=== PATIENT | female | born 1965 | race Caucasian/White ===

== ENCOUNTER 2016-10-05 09:44 | Emergency (ER) | payer OTHER ==
[~2016-10-05] VITALS: Ht 162.6 cm; Wt 83.8 kg
[~2016-10-05 09:44] MED LIST: BENT20TA PO; CARA1TAB6 PO; COZA100T PO; HYDR-3535 PO; LORA1TAB12 PO; METR-1 PO; OMEP20TA PO; ZANA4CAP PO; ZOFR4TAB3 SL
[2016-10-05 09:48] VITALS: BP 136/83; PULSE 96; RESP 16; TEMP 97.7; O2SAT 98
[2016-10-05] MEDS ORDERED: diphenhydrAMINE HCL 50 MG/ML VIAL IV PUSH ONE (10:15)
[2016-10-05] MEDS ORDERED: PROCHLORPERAZINE INJ 10 MG/2 ML VIAL IV PUSH ONE (10:15)
[2016-10-05] MEDS ORDERED: SODIUM CHLORIDE 0.9% FLUSH 10 ML FLUSH IVF PRN (10:15)
[2016-10-05 10:17] VITALS: O2SAT 96
[2016-10-05 10:27] LABS: BASOPHIL % 0.3 % (0.0-2.0); EOSINOPHIL # 0.1 TH/MM3 (0-0.4); EOSINOPHIL % 0.9 % (0.0-4.0); HEMATOCRIT 43.3 % (35.0-46.0); HEMO FLAGS DIFF FINAL; LYMPH % 22.4 % (9.0-44.0); LYMPHOCYTE # 1.9 TH/MM3 (1.0-4.8); MEAN CELL VOLUME 83.8 FL (80.0-100.0); MEAN CORPUSCULAR HEMOGLOBIN 26.7 PG (27.0-34.0); MEAN CORPUSCULAR HGB CONC 31.9 % (32.0-36.0); MONO % 4.6 % (0.0-8.0); NEUT % 71.8 % (16.0-70.0); PLATELET COUNT 263 TH/MM3 (150-450); RED BLOOD COUNT 5.16 MIL/MM3 (4.00-5.30); RED CELL DISTRIBUTION WIDTH 12.6 % (11.6-17.2); WHITE BLOOD COUNT 8.4 TH/MM3 (4.0-11.0)
[2016-10-05 10:34] LABS: CHLORIDE 108 MEQ/L (98-107); POTASSIUM 3.7 MEQ/L (3.5-5.1); SODIUM (NA) 145 MEQ/L (136-145)
[2016-10-05 10:38] LABS: ANION GAP 8 MEQ/L (5-15); BICARBONATE 28.6 MEQ/L (21.0-32.0); BLOOD UREA NITROGEN 11 MG/DL (7-18); MAGNESIUM 2.2 MG/DL (1.5-2.5)
[2016-10-05 10:41] LABS: ALT (GPT) 26 U/L (10-53); AST (GOT) 12 U/L (15-37); GLOMERULAR FILTRATION RATE 74 ML/MIN (>89)
[2016-10-05 10:43] LABS: TOTAL BILIRUBIN ADULT 0.2 MG/DL (0.2-1.0)
[2016-10-05 10:44] LABS: ALKALINE PHOSPHATASE 110 U/L (45-117)
[2016-10-05 11:05] LABS: CREATINE KINASE 60 U/L (26-192)
--- NOTE | 2016-10-05 11:12 | PD ---
HPI . Blurred vision Chief Complaint: Dizziness Time Seen by Provider: 10:06 Travel History International Travel<30 days: No Contact w/Intl Traveler<30days: No Traveled to known affect area: No History of Present Illness HPI Patient presents with blurred vision, dizziness feeling off balance since 6:30 last night. Symptoms have persisted. It is associated with nausea but no vomiting. She states that she actually has some numbness of her tongue along as night prior to the onset of the visual problems and dizziness. She denies any peripheral symptoms. She does not have a headache. The blurred vision is severe. PFSH Past Medical History Arthritis: Yes (OA) Asthma: No Anxiety: Yes Heart Rhythm Problems: No Cancer: No Cardiovascular Problems: Yes (htn on meds) High Cholesterol: No Chest Pain: No Congestive Heart Failure: No COPD: No Cerebrovascular Accident: No Diabetes: No Diminished Hearing: No Endocrine: No Fibromyalgia: Yes Gastrointestinal Disorders: Yes GERD: Yes Genitourinary: No Headaches: No Hepatitis: No Hiatal Hernia: Yes Hypertension: Yes Immune Disorder: Yes (fibromyalgia) Kidney Stones: No Musculoskeletal: Yes (neck pain and arthritis) Neurologic: Yes (NUMBNESS, RIGHT FOOT AND LEFT HAND, CHRONIC PAIN) Psychiatric: Yes (anxiety) Reproductive: Yes (HX ENDOMETRIOSIS) Respiratory: No Migraines: No Renal Failure: No Seizures: No Sleep Apnea: No Thyroid Disease: No Ulcer: No Tetanus Vaccination: Unknown ?: Not : 5 Para: 4 Miscarriage: 1 Tubal Ligation: Yes Past Surgical History Abdominal Surgery: Yes (gallbladder) AICD: No Body Medical Devices: breast marker r Cardiac Surgery: No Section: Yes (X 4) Cholecystectomy: Yes Ear Surgery: No Endocrine Surgery: No Eye Surgery: No Genitourinary Surgery: No Gynecologic Surgery: Yes ( X 4; D&C W/LAP X 2, HYSTERECTOMY) Hysterectomy: Yes Joint Replacement: No Neurologic Surgery: No Oral Surgery: No Pacemaker: No Thoracic Surgery: No Other Surgery: Yes (DECEMBER 2015 LUMBAR FUSION L5-S1) Social History Alcohol Use: No Tobacco Use: No (QUIT 2010) Substance Use: No Allergies-Medications (Allergen,Severity, Reaction): Coded Allergies: Oxycontin (Verified Allergy, Severe, SOB/CAN'T BREATH, 10/05/16) Morphine (Verified Adverse Reaction, Severe, N/V/ITCHING/FEELS DEATHLY ILL , 10/05/16) Penicillin (Verified Adverse Reaction, Severe, N/V/ITCHING, 10/05/16) Aspirin (Verified Adverse Reaction, Intermediate, N/V/RASH, 10/05/16) Sulfa (Verified Adverse Reaction, Intermediate, N/V, 10/05/16) Reported Meds & Prescriptions Reported Meds & Active Scripts Active Bentyl (Dicyclomine HCl) 20 Mg Tab 20 Mg PO TID Zofran Odt (Ondansetron Odt) 4 Mg Tab 4 Mg SL Q6HR PRN Reported Zanaflex (Tizanidine HCl) 4 Mg Cap 4 Mg PO TID PRN Lortab (Hydrocodone-Acetaminophen) 10-325 Mg Tab 1 Tab PO Q6H PRN Lorazepam 1 Mg Tab 1 Mg PO BID PRN Omeprazole 20 Mg Tab 20 Mg PO DAILY Cozaar (Losartan Potassium) 100 Mg Tab 100 Mg PO DAILY Review of Systems Except as stated in HPI: all other systems reviewed are Neg General / Constitutional: No: Fever, Chills Eyes: Positive: Diploplia, Blurred Vision HENT: No: Headaches Cardiovascular: No: Chest Pain or Discomfort Respiratory: No: Shortness of Breath Gastrointestinal: Positive: Nausea, No: Vomiting, Diarrhea Neurologic: Positive: Dizziness, Ataxia, No: Weakness, Headache, Change in Mentation, Slurred Speech, Paresthesia Physical Exam Narrative GENERAL: Patient is lying on the bed her eyes closed in no acute distress. SKIN: Warm and dry. HEAD: Atraumatic. Normocephalic. EYES: Pupils equal and round. Her extraocular movements are not normal. It appears that both eyes will not deviate medially past the midline. The patient feels like the majority of her symptoms are in the right eye but I am unable to get the left eye to go past midline. ENT: No nasal bleeding or discharge. Mucous membranes pink and moist. NECK: Trachea midline. CARDIOVASCULAR: Regular rate and rhythm. RESPIRATORY: No accessory muscle use. GASTROINTESTINAL: Abdomen soft, non-tender, nondistended. MUSCULOSKELETAL: No obvious deformities. No edema. NEUROLOGICAL: Awake and alert. No obvious cranial nerve deficits with the exception of the extraocular movement. Motor grossly within normal limits. Normal speech. Tongue protrudes in the midline. PSYCHIATRIC: Appropriate mood and affect; insight and judgment normal. Data Data Last Documented VS Vital Signs Date Time Temp Pulse Resp B/P Pulse Ox O2 Delivery O2 Flow Rate FiO2 10/05/16 10:17 96 10/05/16 10:03 95 16 10/05/16 09:48 97.7 136/83 Orders Electrocardiogram (10/05/16 10:06) Complete Blood Count With Diff (10/05/16 10:06) Comprehensive Metabolic Panel (10/05/16 10:06) Magnesium (Mg) (10/05/16 10:06) Ckmb (Isoenzyme) Profile (10/05/16 10:06) Troponin I (10/05/16 10:06) Chest, Single Ap (10/05/16 10:06) Ct Brain W/O Iv Contrast(Rout) (10/05/16 10:06) Ecg Monitoring (10/05/16 10:06) Iv Access Insert/Monitor (10/05/16 10:06) Oximetry (10/05/16 10:06) Sodium Chloride 0.9% Flush (Ns Flush) (10/05/16 10:15) Prochlorperazine Inj (Compazine Inj) (10/05/16 10:15) Diphenhydramine Inj (Benadryl Inj) (10/05/16 10:15) Labs Laboratory Tests Test 10/05/16 10:19 White Blood Count 8.4 TH/MM3 Red Blood Count 5.16 MIL/MM3 Hemoglobin 13.8 GM/DL Hematocrit 43.3 % Mean Corpuscular Volume 83.8 FL Mean Corpuscular Hemoglobin 26.7 PG Mean Corpuscular Hemoglobin 31.9 % Concent Red Cell Distribution Width 12.6 % Platelet Count 263 TH/MM3 Mean Platelet Volume 8.7 FL Neutrophils (%) (Auto) 71.8 % Lymphocytes (%) (Auto) 22.4 % Monocytes (%) (Auto) 4.6 % Eosinophils (%) (Auto) 0.9 % Basophils (%) (Auto) 0.3 % Neutrophils # (Auto) 6.0 TH/MM3 Lymphocytes # (Auto) 1.9 TH/MM3 Monocytes # (Auto) 0.4 TH/MM3 Eosinophils # (Auto) 0.1 TH/MM3 Basophils # (Auto) 0.0 TH/MM3 CBC Comment DIFF FINAL Differential Comment Sodium Level 145 MEQ/L Potassium Level 3.7 MEQ/L Chloride Level 108 MEQ/L Carbon Dioxide Level 28.6 MEQ/L Anion Gap 8 MEQ/L Blood Urea Nitrogen 11 MG/DL Creatinine 0.81 MG/DL Estimat Glomerular Filtration 74 ML/MIN Rate Random Glucose 154 MG/DL Calcium Level 8.7 MG/DL Magnesium Level 2.2 MG/DL Total Bilirubin 0.2 MG/DL Aspartate Amino Transf 12 U/L (AST/SGOT) Alanine Aminotransferase 26 U/L (ALT/SGPT) Alkaline Phosphatase 110 U/L Total Creatine Kinase 60 U/L Troponin I LESS THAN 0.02 NG/ML Total Protein 7.4 GM/DL Albumin 3.7 GM/DL MDM Medical Decision Making Medical Screen Exam Complete: Yes Emergency Medical Condition: Yes Interpretation(s) EKG shows a normal sinus rhythm with no acute ischemic change. Differential Diagnosis Differential diagnosis includes peripheral nerve palsy, extraocular muscular entrapment, brain tumor, brain bleed Narrative Course Patient presents with acute diplopia. She seems to have bilateral eye involvement. CBC & BMP Diagram 10/05/16 10:19 Cardiac enzymes are negative. Liver function studies are normal. Last Impressions Head CT 10/05/16 1006 Signed Impressions: Service Date/Time: Wednesday, October 05, 2016 10:39 - CONCLUSION: No acute intracranial abnormality is identified. Renan Asif MD Chest X-Ray 10/05/16 1006 Signed Impressions: Service Date/Time: Wednesday, October 05, 2016 11:07 - CONCLUSION: No acute disease. Kade Fletcher MD Physician Communication Physician Communication Case discussed with Dr. Dalton. He feels that this is probably really just affecting one eye. The patient believes that it is her right eye. He will see her in the office at 12:30. The patient's eye will be patched for comfort in the meantime. Diagnosis Primary Impression: Diplopia Referrals: Antwan Roa MD Disposition: 01 DISCHARGE HOME Condition: Stable Lisandra Ortiz MD Oct 05, 2016 11:12
--- NOTE | 2016-10-05 11:15 | RADHPO ---
EXAM DATE/TIME: 10/05/2016 10:39 [facility] COMPARISON: No previous studies available for comparison. INDICATIONS : Dizziness, blurred vision, neck pain. RADIATION DOSE: 63.64 CTDIvol (mGy) MEDICAL HISTORY : Hypertension. SURGICAL HISTORY : Hysterectomy. ENCOUNTER: Initial ACUITY: 1 day PAIN SCALE: 0/10 LOCATION: cranial TECHNIQUE: Multiple contiguous axial images were obtained of the head. Using automated exposure control and adj ustment of the mA and/or kV according to patient size, radiation dose was kept as low as reasonably a chievable to obtain optimal diagnostic quality images. FINDINGS: CEREBRUM: Ventricles demonstrate asymmetry but are overall normal in size. No evidence of midline shift, mass lesion, hemorrhage or acute infarction. No extra-axial fluid collections are seen. POSTERIOR FOSSA: The cerebellum and brainstem demonstrate no acute finding. The 4th ventricle is midline. The cerebe llopontine angle is unremarkable. EXTRACRANIAL: Visualized sinuses are clear. SKULL: The calvaria is intact. No evidence of skull fracture. CONCLUSION: No acute intracranial abnormality is identified. Renan Asif MD on October 05, 2016 at 11:12 Board Certified Radiologist. This report was verified electronically.
--- NOTE | 2016-10-05 11:23 | RADHPO ---
EXAM DATE/TIME: 10/05/2016 11:07 [facility] COMPARISON: CHEST PA & LAT, January 09, 2016, 12:04. INDICATIONS : Syncopal episode with shortness of breath MEDICAL HISTORY : Hypertension. SURGICAL HISTORY : None. ENCOUNTER: Initial ACUITY: 1 day PAIN SCORE: 0/10 LOCATION: Bilateral chest FINDINGS: A single view of the chest demonstrates the lungs to be symmetrically aerated without evidence of mas s, infiltrate or effusion. The cardiomediastinal contours are unremarkable. Osseous structures are intact. CONCLUSION: No acute disease. Kade Fletcher MD on October 05, 2016 at 11:21 Board Certified Radiologist. This report was verified electronically.
[2016-10-05 11:35] VITALS: BP 146/73
--- NOTE | 2016-10-06 11:54 | EKG ---
Date Performed: 10/05/2016 Time Performed: 10:17:52 PTAGE: 51 years EKG: Sinus rhythm Normal ECG PREVIOUS TRACING : 01/09/2016 11.22 DOCTOR: Martinez Culver Interpretating Date/Time 10/06/2016 11:47:10
== END 2016-10-05 11:49 | disposition home or self-care (01) ==
LOC: PHED 09:44
DX: H53.8 Other visual disturbances (principal); I10 Essential (primary) hypertension; M79.7 Fibromyalgia; H53.2 Diplopia
CPT/HCPCS: 70450; 71010; 80053; 82550; 83735; 84484; 85025; 93005; 96374; 96375; 99285; J0780; J1200

== ENCOUNTER 2016-10-05 13:24 | Inpatient (IN) | payer OTHER ==
[~2016-10-05] VITALS: Ht 160 cm; Wt 77.0 kg
[2016-10-05 13:25] VITALS: BP 155/79; PULSE 94; RESP 16; TEMP 98; O2SAT 97
[2016-10-05 15:25] VITALS: BP 156/78; PULSE 90; RESP 16; TEMP 98.1; O2SAT 98
--- NOTE | 2016-10-05 15:32 | PD ---
HPI Chief Complaint: Neuro Symptoms/ Deficits Time Seen by Provider: 15:32 Travel History International Travel<30 days: No Contact w/Intl Traveler<30days: No Traveled to known affect area: No History of Present Illness HPI 51-year-old female with PMH of HTN, chronic neck and back pain, (s/p TLI F of L5 /S1 by Dr. Hudson) presents to the ED for evaluation of sudden onset double/ triple vision, dizziness, nausea, unsteadiness. Patient states that she was watching TV last night had an episode of numbness in the mouth and lips which lasted about 10 seconds and resolved before the patient began to feel tension of the neck. She states that the facial paresthesias have resolved, neck tension continues on presentation. Just after this episode she began to experience vision problems. She was seen at [facility], medically cleared and sent to the jewelry estimator. Dr. Roa did a complete exam and sent her back to the ED for MRI with contrast. PCP Dr Anatoliy Baires. [facility] Past Medical History Arthritis: Yes (OA) Asthma: No Anxiety: Yes Heart Rhythm Problems: No Cancer: No Cardiovascular Problems: Yes (htn on meds) High Cholesterol: No Chest Pain: No Congestive Heart Failure: No COPD: No Cerebrovascular Accident: No Diabetes: No Diminished Hearing: No Endocrine: No Fibromyalgia: Yes Gastrointestinal Disorders: Yes GERD: Yes Genitourinary: No Headaches: No Hepatitis: No Hiatal Hernia: Yes Hypertension: Yes Immune Disorder: Yes (fibromyalgia) Kidney Stones: No Musculoskeletal: Yes (neck pain and arthritis) Neurologic: Yes (NUMBNESS, RIGHT FOOT AND LEFT HAND, CHRONIC PAIN) Psychiatric: Yes (anxiety) Reproductive: Yes (HX ENDOMETRIOSIS) Respiratory: No Migraines: No Renal Failure: No Seizures: No Sleep Apnea: No Thyroid Disease: No Ulcer: No : 5 Para: 4 Miscarriage: 1 Tubal Ligation: Yes Past Surgical History Abdominal Surgery: Yes (gallbladder) AICD: No Body Medical Devices: breast marker r Cardiac Surgery: No Section: Yes (X 4) Cholecystectomy: Yes Ear Surgery: No Endocrine Surgery: No Eye Surgery: No Genitourinary Surgery: No Gynecologic Surgery: Yes ( X 4; D&C W/LAP X 2, HYSTERECTOMY) Hysterectomy: Yes Joint Replacement: No Neurologic Surgery: No Oral Surgery: No Pacemaker: No Thoracic Surgery: No Other Surgery: Yes (DECEMBER 2015 LUMBAR FUSION L5-S1) Social History Alcohol Use: No Tobacco Use: No (QUIT 2010) Substance Use: No Allergies-Medications (Allergen,Severity, Reaction): Coded Allergies: Oxycontin (Verified Allergy, Severe, SOB/CAN'T BREATH, 10/05/16) Morphine (Verified Adverse Reaction, Severe, N/V/ITCHING/FEELS DEATHLY ILL , 10/05/16) Penicillin (Verified Adverse Reaction, Severe, N/V/ITCHING, 10/05/16) Aspirin (Verified Adverse Reaction, Intermediate, N/V/RASH, 10/05/16) Sulfa (Verified Adverse Reaction, Intermediate, N/V, 10/05/16) Reported Meds & Prescriptions Reported Meds & Active Scripts Active Reported Zanaflex (Tizanidine HCl) 4 Mg Cap 4 Mg PO TID PRN Lortab (Hydrocodone-Acetaminophen) 10-325 Mg Tab 1 Tab PO Q6H PRN Lorazepam 1 Mg Tab 1 Mg PO BID PRN Omeprazole 20 Mg Tab 20 Mg PO DAILY Cozaar (Losartan Potassium) 100 Mg Tab 100 Mg PO DAILY Review of Systems Except as stated in HPI: all other systems reviewed are Neg Physical Exam Narrative GENERAL: Well-nourished, well-developed nontoxic appearing white female in no acute distress. SKIN: Focused skin assessment warm/dry. HEAD: Normocephalic. EYES: No scleral icterus. No injection or drainage. PERRLA. Unable to adduct the eyes bilaterally. NECK: Supple, trachea midline. No JVD or lymphadenopathy. CARDIOVASCULAR: Regular rate and rhythm without murmurs, gallops, or rubs. RESPIRATORY: Breath sounds equal bilaterally. No accessory muscle use. GASTROINTESTINAL: Abdomen soft, non-tender, nondistended. MUSCULOSKELETAL: No cyanosis, or edema. NEUROLOGICAL: Awake and alert. Cranial nerves II through XII intact. Motor and sensory grossly within normal limits. Five out of 5 muscle strength in all muscle groups. Normal speech. BACK: Nontender without obvious deformity. No CVA tenderness. Data Data Last Documented VS Vital Signs Date Time Temp Pulse Resp B/P Pulse Ox O2 Delivery O2 Flow Rate FiO2 10/05/16 18:19 101 16 131/80 96 Room Air 10/05/16 15:25 98.1 Orders Mri Brain W&W/O Contrast (10/05/16 15:36) Ondansetron Inj (Zofran Inj) (10/05/16 16:45) ^ Insert Iv (10/05/16 16:37) Lorazepam Inj (Ativan Inj) (10/05/16 16:45) Gadodiamide Pf Inj (Omniscan Pf Inj) (10/05/16 18:19) Diet Npo (10/05/16 Dinner) Vital Signs (Adult) BG.Q4H (10/05/16 18:25) Neuro Checks . ORDERED (10/05/16 18:25) Sodium Chlor 0.9% 1000 Ml Inj (Ns 1000 M (10/05/16 18:30) Ondansetron Inj (Zofran Inj) (10/05/16 18:30) Consult Neurology (10/05/16 ) Admit Order (Ed Use Only) (10/05/16 18:25) MDM Medical Decision Making Medical Screen Exam Complete: Yes Emergency Medical Condition: Yes Differential Diagnosis Cranial nerve palsy versus Guillain-Cesar versus MS versus orbital myositis versus brain mass versus internuclear ophthalmoplegia versus other Narrative Course 51-year-old female with PMH of HTN, fibromyalgia, chronic neck and back pain, (s /p TLI F of L5/S1 by Dr. Hudson) presents to the ED for evaluation of sudden onset double/triple vision, dizziness, nausea, unsteadiness. She endorses an episode of facial paraesthesia last night that is resolved on presentation. Just after this episode she began to experience vision problems. She was seen at [facility] this AM, medically cleared and sent to the jewelry estimator. Dr. Roa did a complete exam and sent her back to the ED for MRI with contrast. Vitals reviewed. Physical exam reveals a nontoxic-appearing white female in no acute distress. Unable to adduct the eyes bilaterally. She was administered Iv Zofran and Ativan. Eye exam per Dr. Roa paperwork: Right eye 20/20, pressure 13, pupils 2 mm and sluggish, no adduction, ROM otherwise intact, cup-to-disc ratio, fundus and vessels normal. Left eye: 20/25, pressure 14, pupil 2.5 mm and sluggish, no adduction, ROM otherwise intact, cup-to-disc ratio, fundus and vessels normal. Dr. Roa DDX: internuclear ophthalmoplegia. Lab work from this morning: CBC: WBC 8.4, hemoglobin 13.8. CMP unremarkable. Cardiac enzymes: negative, CXR: negative for acute disease, HEAD CT: no acute intracranial abnormality per radiology. MRI: pending Plan to consult neuro and admit to medicine. I spoke with Dr. Vaughn who agrees to accept this patient to the medicine service. Please see medicine and neuro notes for disposition. Diagnosis Primary Impression: Diplopia Tiera Churchill Oct 05, 2016 15:32
[2016-10-05] MEDS ORDERED: ONDANSETRON HCL 4 MG/2 ML VIAL IV PUSH ONE (16:45)
[2016-10-05] MEDS ORDERED: LORazepam 2 MG/ML VIAL IV PUSH ONE (16:45)
[2016-10-05 18:19] VITALS: BP 131/80; PULSE 101; RESP 16; O2SAT 96
[2016-10-05] MEDS ORDERED: GADODIAMIDE PF 287 MG/ML 5 ML VIAL (for RAD MRI) IV ONE (18:19)
[2016-10-05] MEDS ORDERED: ONDANSETRON HCL 4 MG/2 ML VIAL IV PUSH PRN (18:30)
[2016-10-05] MEDS: SODIUM CHLOR 0.9% 1000 ML INJ 1,000 ML IV SCH (18:39)
--- NOTE | 2016-10-05 18:52 | RADRPT ---
EXAM DATE/TIME: 10/05/2016 17:43 [facility] COMPARISON: No previous studies available for comparison. INDICATIONS : Dizziness. Double vision. CONTRAST: 15 cc Omniscan (gadodiamide) IV MEDICAL HISTORY : Hypertension. SURGICAL HISTORY : Hysterectomy. Lumbar fusion. ENCOUNTER: Initial ACUITY: 1 day PAIN SCORE: 2/10 LOCATION: Head. TECHNIQUE: Multiplanar, multisequence MRI of the brain was performed both prior to and following the administration of paramagnetic contrast. FINDINGS: There is no restricted diffusion evident. Posterior fossa is unremarkable. Supratentorial brain shows very minimal periventricular white matter changes. Orbits are unremarkable. There are no extra-axial fluid collections appreciated. I do not see any stigmata of a demyelinated process. Following intravenous administration of gadolinium there is no abnormal contrast enhancement apprecia bart. CONCLUSION: 1. Negative MRI of the brain. I do not see an etiology for the patient's dizziness and double vision . 2. There is mild asymmetry of the ventricles with the right larger than the left thought to be on a c ongenital basis. Lenin Saldivar MD FACR on October 05, 2016 at 18:43 Board Certified Radiologist. This report was verified electronically.
[2016-10-05 19:47] VITALS: BP 173/87; PULSE 108; RESP 16; O2SAT 97
--- NOTE | 2016-10-05 19:58 | HHI.HP ---
HPI Service [facility] Hospitalists Primary Care Physician Niurka Townsend Admission Diagnosis diplopia, n/v Diagnoses: Chief Complaint: diplopia and nausea Travel History International Travel<30 Days: No Contact w/Intl Traveler <30 Da: No Traveled to Known Affected Are: No History of Present Illness 51-year-old female with PMH of HTN, chronic neck and back pain GERD and fatty liver. Patient states that she was watching TV last night (10/04/16) around 1800 had an episode of numbness in the mouth and lips which lasted approximately 10 seconds and resolved spontaneously. She states that the facial paresthesias have resolved. Just after this episode she began to experience double vision and dizziness. Diplopia was still present this AM therefore patient proceeded to [facility] for evaluation, initially patient presented to the ED for evaluation of diplopia, dizziness, nausea. Patient was seen at [facility], medically cleared and sent to the roller embosser. Dr. Roa did a complete exam and sent her back to the ED for MRI with contrast. Patient does check her blood pressure at home routinely and reports that her SBP is usually around 130's. Patient is now currently having vomiting, feels this may be due to not eating all day. Patient denies recent illness sore throat, cough, fever, chills, diarrhea, SOB, chest pain, black stool, bright red blood per rectum. Patient also denies palpitations or recent travel, denies lower extremity pain, edema or erythema. Review of Systems Except as stated in HPI: all other systems reviewed are Neg Past Family Social History Past Medical History HTN, chronic neck and back pain GERD and fatty liver Past Surgical History laminectomy x2 x4 Cholecystectomy hysterectomy Reported Medications Zanaflex (Tizanidine HCl) 4 Mg Cap 4 Mg PO TID PRN Lortab (Hydrocodone-Acetaminophen) 10-325 Mg Tab 1 Tab PO Q6H PRN Lorazepam 1 Mg Tab 1 Mg PO BID PRN Omeprazole 20 Mg Tab 20 Mg PO DAILY Cozaar (Losartan Potassium) 100 Mg Tab 100 Mg PO DAILY Allergies: Coded Allergies: Oxycontin (Verified Allergy, Severe, SOB/CAN'T BREATH, 10/05/16) Morphine (Verified Adverse Reaction, Severe, N/V/ITCHING/FEELS DEATHLY ILL , 10/05/16) Penicillin (Verified Adverse Reaction, Severe, N/V/ITCHING, 10/05/16) Aspirin (Verified Adverse Reaction, Intermediate, N/V/RASH, 10/05/16) Sulfa (Verified Adverse Reaction, Intermediate, N/V, 10/05/16) Active Ordered Medications Current Medications Medications (Trade) Dose Ordered Sig/Abiola Route Start Time Stop Time Status Last Admin (NS 1000 ml Inj) 1,000 ml @ 100 mls/hr Q10H IV 10/05/16 18:30 10/05/16 18:39 (Zofran Inj) 4 mg Q8HR PRN IV PUSH 10/05/16 18:30 Family History Mother breast Ca, DM and Htn Father DM and CAD Social History quit smoking 2010 denies illicit drug use denies ETOH use Physical Exam Vital Signs Vital Signs Date Time Temp Pulse Resp B/P Pulse Ox O2 Delivery O2 Flow Rate FiO2 10/05/16 18:19 101 16 131/80 96 Room Air 10/05/16 15:35 Room Air 10/05/16 15:25 98.1 90 16 156/78 98 Room Air 10/05/16 13:25 98.0 94 16 155/79 97 Physical Exam GENERAL: This is a well-nourished, well-developed patient, currently vomiting SKIN: No rashes, ecchymoses or lesions. Cool and dry. HEAD: Atraumatic. Normocephalic. No temporal or scalp tenderness. EYES: unable to adduct bilaterally. No scleral icterus. No injection or drainage. ENT: Nose without bleeding, purulent drainage or septal hematoma. Throat without erythema, tonsillar hypertrophy or exudate. Uvula midline. Airway patent. NECK: Trachea midline. No JVD or lymphadenopathy. Supple, nontender, no meningeal signs. CARDIOVASCULAR: Tachycardia without murmurs, gallops, or rubs. RESPIRATORY: Clear to auscultation. Breath sounds equal bilaterally. No wheezes , rales, or rhonchi. GASTROINTESTINAL: Abdomen soft, non-tender, nondistended. No guarding. MUSCULOSKELETAL: Extremities without clubbing, cyanosis, or edema. No joint tenderness, effusion, or edema noted. No calf tenderness. Negative Homans sign bilaterally. NEUROLOGICAL: Awake and alert. Motor and sensory grossly within normal limits. Five out of 5 muscle strength in all muscle groups. Normal speech. Imaging Last Impressions Brain MRI 10/05/16 1536 Signed Impressions: Service Date/Time: Wednesday, October 05, 2016 17:43 - CONCLUSION: 1. Negative MRI of the brain. I do not see an etiology for the patient's dizziness and double vision. 2. There is mild asymmetry of the ventricles with the right larger than the left thought to be on a congenital basis. Lenin Saldivar MD FACR Carotid Artery Ultrasound 10/05/16 0000 Signed Impressions: Service Date/Time: Wednesday, October 05, 2016 20:50 - CONCLUSION: Negative examination for a hemodynamically significant carotid stenosis. Lenin Saldivar MD Assessment and Plan Problem List: (1) Diplopia ICD Code: H53.2 Status: Acute (2) KRISHNA (internuclear ophthalmoplegia) ICD Code: H51.20 Status: Acute Assessment and Plan 51-year-old female with PMH of HTN, chronic neck and back pain GERD and fatty liver. Patient states that she was watching TV last night (10/04/16) around 1800 had an episode of numbness in the mouth and lips which lasted about 10 seconds and resolved before the patient began to feel tension of the neck. She states that the facial paresthesias have resolved, neck tension continues on presentation. Just after this episode she began to experience vision problems. Initially patient presented to the ED for evaluation of diplopia, dizziness, nausea possible internuclear ophthalmoplegia TIA vs CVA vs MS- leaning toward MS as the adduction was bilateral dizziness Initially CT head done [facility] reviewed and reveals: no acute intracranial abnormality is identified consult neurology MRI with and without contrast reveals report- negative MRI no etiology for dizziness and diplopia, mild asymmetry of ventricles possibly congenital basis US bilateral carotid arteries echocardiogram continuous telemetry allow permissive HTN- hold Cozaar N/V Zofran Q6H as needed Reglan 5 mg IV as needed start full liquid diet HTN will hold home medication at this time allow permissive HTN at this time GERD continue home Omeprazole DVT prophylaxis SCDs Discussed with ER provider, nursing and patient Written by Lilia Islas, acting as scribe for Dr. Green on 10/05/16 at 20: 21. All or portions of this note were transcribed by scribe [Lilia Islas]. I, Dr. Amanuel Green personally performed the history, physical exam, and medical decision making; and confirmed the accuracy of the information in the transcribed note. Authenticated by Dr. Amanuel Green on 10/05/16 at 20:21. Discussed Condition With patient, ER Lilia Willis Oct 05, 2016 19:58 Amanuel Green MD Oct 06, 2016 07:07
[2016-10-05] MEDS ORDERED: METOCLOPRAMIDE HCL 10 MG/2 ML VIAL IV PUSH PRN (20:15)
[2016-10-05] MEDS: LORazepam 1 MG TAB PO PRN (21:55)
[2016-10-05] MEDS: ONDANSETRON HCL 4 MG/2 ML VIAL IV PUSH PRN (21:55)
--- NOTE | 2016-10-05 22:48 | RADRPT ---
EXAM DATE/TIME: 10/05/2016 20:50 [facility] COMPARISON: No previous studies available for comparison. INDICATIONS : CVA. MEDICAL HISTORY : Gastroesophageal reflux disease. Hypertension. Arthritis. Fibromyalgia. SURGICAL HISTORY : section. Tubal ligation. Hysterectomy. Cholecystectomy. Hiatal hernia repair. D&C. Lower back surgery. ENCOUNTER: Initial ACUITY: 2 days PAIN SCORE: 3/10 LOCATION: Bilateral neck PEAK SYSTOLIC VELOCITIES (cm/sec): ICA/CCA RATIO: Right: 0.6 Left: 0.9 ICA: Right: 79 Left: 104 CCA: Right: 127 Left: 112 ECA: Right: 46 Left: 106 VERTEBRAL: Right: 39 antegrade Left: 62 antegrade Elevated flow velocities and ICA/CCA ratios have been found to correlate with increased degrees of vessel stenosis, calculated as percentage of diameter relative to a normal segment of distal ICA/CCA FINDINGS: RIGHT CAROTID: There is no evidence for a hemodynamically significant carotid stenosis. Minimal int imal hyperplasia is present with scattered calcific plaque. LEFT CAROTID: There is no evidence for a hemodynamically significant carotid stenosis. Minimal inti mal hyperplasia is present with scattered calcific plaque. VERTEBRAL ARTERIES: Flow is antegrade in both vertebral arteries. MISCELLANEOUS: There are no ancillary masses or adenopathy. CONCLUSION: Negative examination for a hemodynamically significant carotid stenosis. Lenin Saldivar MD FACR Board Certified Radiologist. This report was verified electronically.
[2016-10-06] VITALS (9 sets, daily range): BP systolic 112–132; BP diastolic 57–69; PULSE 80–89; RESP 16–20; TEMP 97.5–98.7; O2SAT 95–96
[2016-10-06] MEDS: SODIUM CHLOR 0.9% 1000 ML INJ 1,000 ML IV SCH ×2 (05:00→15:14)
[2016-10-06] MEDS: PANTOPRAZOLE SOD 20 MG DELAYED RELEASE TAB PO SCH (06:19)
[2016-10-06] MEDS: ONDANSETRON HCL 4 MG/2 ML VIAL IV PUSH PRN ×2 (06:20→23:12)
[2016-10-06] MEDS: LORazepam 1 MG TAB PO PRN (09:40)
--- NOTE | 2016-10-06 12:36 | MB ---
cc: CYN FINLEY M.D. DATE OF CONSULTATION 10/06/2016 She is a 51-year-old woman seen in neurological consultation. HISTORY OF PRESENT ILLNESS On Wednesday, two days ago, she developed sudden numbness around the mouth and lips. She fell this bilaterally, lasting than 10 seconds only. During the numbness or immediately after that she observed double vision and some probable vertigo. She went to bed and in the morning her symptoms seemed to persist and she went to the emergency room. She was referred to the cancer registry manager and after seeing the cancer registry manager, she was sent back to the emergency room where she is seen now. She came into this emergency room last evening. No recurrence of numbness or tingling but the double vision persists. She has a history of lower back surgery last year, chronic low back and neck pain and she takes Lortab for these. She takes lorazepam in the evenings and losartan. She does not take any aspirin or blood thinners. No history of stroke. No diabetes. No cancer history. NEUROLOGIC EXAM Completely normal mentation. Pupils were equal and reactive. I could not see the disks well as the pupils were small and she on the other hand has obvious difficulty with the left eye crossing the midline when she gazes to the right. The left eye will cross but only partially and she is uncomfortable with this. She has double vision when she looks at my face and happens when I was on her right hand side. The there is no ptosis. There is no facial weakness. Speech and language are normal. Extremities were normal on the bedside exam. The reflexes were 1+ throughout, plantar responses were flexor. There is no arm drift, [id number] testing is normal. Good strength with the lower extremities exam. IMAGING STUDIES The MRI of brain appears normal though on my review there is some questionable minor changes in the brain stem in the FLAIR images, no distinct diffusion abnormalities noted. There is a single foci of microvascular disease or edema, ischemic demyelination supratentorial. Carotid ultrasound is unremarkable. LABORATORY DATA Apparently no labs from this admission. ASSESSMENT Diplopia with an intranuclear ophthalmoplegia. At this age this certainly could be a very small cerebrovascular event especially that it had the onset with some tingling and numbness around the mouth and lips. The possibility of a true demyelinating disorder is also a consideration, though the remainder of the MRI is not in favor of this. PLAN 1. I am going to obtain an MRA [place] of Kumar and MRA of neck before deciding on discharging her or not. 2. We will initiate aspirin therapy and I will check labs to include a lipid profile as well. 3. I discussed this and asked the patient to intermittently patch either eye but not a single eye as she is currently doing. 4. If everything goes well, I expect her symptoms to gradually improve. 5. A primary cranial neuropathy itself is unlikely due to the lack of more obvious ocular movement disorder but this also would be a relatively benign syndrome. 6. I will see her in the office in 1-2 weeks. Thank you for asking us to assist in her care. Cyn Finley MD OFC/SSB /12:12 PM /12:24 PM
[2016-10-06] MEDS: ACETAMINOPHEN/HYDROcodone 325 MG/10 MG TAB PO PRN ×2 (13:03→20:56)
[2016-10-06] MEDS ORDERED: LORazepam 2 MG/ML VIAL IV PUSH ONE (13:30)
--- NOTE | 2016-10-06 13:45 | HHI.PR ---
Subjective Remarks The pt was nervous about getting another MRI of her brain and requested anxiety meds. She stated that her symptoms of numbness and tingling around her mouth and tongue have subsided. She says if she removes her eye patch she will not be able to see effectively as her eyes will wander. She said she spoke with the neurologist earlier. Discussed with nursing. Objective Vitals Vital Signs Date Time Temp Pulse Resp B/P Pulse Ox O2 Delivery O2 Flow Rate FiO2 10/06/16 11:41 97.5 84 16 116/69 95 10/06/16 07:51 97.6 89 18 132/69 96 10/06/16 04:34 98.1 82 20 112/57 95 10/06/16 00:56 80 10/06/16 00:24 98.3 87 19 122/66 95 10/05/16 19:47 108 16 173/87 97 Room Air 10/05/16 18:19 101 16 131/80 96 Room Air 10/05/16 15:35 Room Air 10/05/16 15:25 98.1 90 16 156/78 98 Room Air I/O 10/05/16 10/05/16 10/05/16 10/06/16 10/06/16 10/06/16 07:00 15:00 23:00 07:00 15:00 23:00 Intake Total 120 ml Balance 120 ml Intake Oral 120 ml # Voids 1 # Bowel Movements 1 Imaging Last Impressions Brain MRI 10/05/16 1536 Signed Impressions: Service Date/Time: Wednesday, October 05, 2016 17:43 - CONCLUSION: 1. Negative MRI of the brain. I do not see an etiology for the patient's dizziness and double vision. 2. There is mild asymmetry of the ventricles with the right larger than the left thought to be on a congenital basis. Lenin Saldivar MD FACR Carotid Artery Ultrasound 10/05/16 0000 Signed Impressions: Service Date/Time: Wednesday, October 05, 2016 20:50 - CONCLUSION: Negative examination for a hemodynamically significant carotid stenosis. Lenin Saldivar MD Objective Remarks GENERAL: This is a well-nourished, well-developed patient, in no apparent distress. SKIN: No rashes, ecchymoses or lesions. Cool and dry. HEAD: Atraumatic. Normocephalic. No temporal or scalp tenderness. EYES: Unable to adduct eyes bilaterally. No scleral icterus. No injection or drainage. ENT: Nose without bleeding, purulent drainage or septal hematoma. Throat without erythema, tonsillar hypertrophy or exudate. Uvula midline. Airway patent. NECK: Trachea midline. No JVD or lymphadenopathy. Supple, nontender, no meningeal signs. CARDIOVASCULAR: Regular rate and rhythm without murmurs, gallops, or rubs. RESPIRATORY: Clear to auscultation. Breath sounds equal bilaterally. No wheezes , rales, or rhonchi. GASTROINTESTINAL: Abdomen soft, non-tender, nondistended. No guarding. MUSCULOSKELETAL: Extremities without clubbing, cyanosis, or edema. No joint tenderness, effusion, or edema noted. NEUROLOGICAL: Awake and alert. Motor and sensory grossly within normal limits. Five out of 5 muscle strength in all muscle groups. Normal speech. PSYCH: Mood and affect appropriate. Medications and IVs Current Medications Medications (Trade) Dose Ordered Sig/Abiola Route Start Time Stop Time Status Last Admin (NS 1000 ml Inj) 1,000 ml @ 100 mls/hr Q10H IV 10/05/16 18:30 10/06/16 05:00 (Zofran Inj) 4 mg Q6HR PRN IV PUSH 10/06/16 00:00 10/06/16 06:20 (Reglan Inj) 5 mg Q8H PRN IV PUSH 10/05/16 20:15 ([place] 10-325 Mg) 1 tab Q6H PRN PO 10/05/16 20:15 10/06/16 13:03 (Ativan) 1 mg BID PRN PO 10/05/16 20:15 10/06/16 09:40 (Zanaflex) 4 mg TID PRN PO 10/05/16 20:15 (Protonix) 20 mg DAILY@06 PO 10/06/16 06:00 10/06/16 06:19 Current Medications Medications (Trade) Dose Ordered Sig/Abiola Route Start Time Stop Time Status Last Admin (NS 1000 ml Inj) 1,000 ml @ 100 mls/hr Q10H IV 10/05/16 18:30 10/06/16 05:00 (Zofran Inj) 4 mg Q6HR PRN IV PUSH 10/06/16 00:00 10/06/16 06:20 (Reglan Inj) 5 mg Q8H PRN IV PUSH 10/05/16 20:15 ([place] 10-325 Mg) 1 tab Q6H PRN PO 10/05/16 20:15 10/06/16 13:03 (Ativan) 1 mg BID PRN PO 10/05/16 20:15 10/06/16 09:40 (Zanaflex) 4 mg TID PRN PO 10/05/16 20:15 (Protonix) 20 mg DAILY@06 PO 10/06/16 06:00 10/06/16 06:19 A/P Problem List: (1) Diplopia ICD Code: H53.2 Status: Acute (2) KRISHNA (internuclear ophthalmoplegia) ICD Code: H51.20 Status: Acute Assessment and Plan 51-year-old female with PMH of HTN, chronic neck and back pain GERD and fatty liver. Patient states that she was watching TV last night (10/04/16) around 1800 had an episode of numbness in the mouth and lips which lasted about 10 seconds and resolved before the patient began to feel tension of the neck. She states that the facial paresthesias have resolved, neck tension continues on presentation. Just after this episode she began to experience vision problems. Initially patient presented to the ED for evaluation of diplopia, dizziness, nausea Possible internuclear ophthalmoplegia TIA vs CVA vs MS. Initially CT head done [facility] reviewed and reveals: no acute intracranial abnormality is identified. She was evaluated by ophthalmology as an outpatient. Neurology consult appreciated. MRI with and without contrast reveals report- negative MRI no etiology for dizziness and diplopia, mild asymmetry of ventricles possibly congenital basis. US bilateral carotid arteries negative. - echocardiogram. - continuous telemetry. - allow permissive HTN- hold Cozaar. - Further MRIs ordered by neurology. - PT/OT. - Check hemoglobin A1c and lipid profile. N/V Seems to be resolved. - Zofran Q6H as needed. - Reglan 5 mg IV as needed. - Advance to regular diet. HTN Blood pressure well controlled at this time. - will hold home medication at this time and allow permissive HTN. DVT prophylaxis SCDs Discharge Planning Awaiting further neurological evaluation. Lion Peralta DO Oct 06, 2016 13:45
--- NOTE | 2016-10-06 13:50 | EC ---
Study Study Date:10/06/2016 STUDY CONCLUSIONS SUMMARY - Left ventricle: The cavity size was normal. Wall thickness was normal. Systolic function was normal. The estimated ejection fraction was in the range of 60% to 65%. Wall motion was normal; there were no regional wall motion abnormalities. - Pulmonary arteries: PA peak pressure: 41mm Hg (S). If LV function is below 40, please consider prescribing an ACEI or ARB or document rationale for non-use. PROCEDURE DATA STUDY STATUS: Elective. Procedure: Transthoracic echocardiography. Image quality was good. Scanning was performed from the parasternal, apical, and subcostal acoustic windows. Study completion: The patient tolerated the procedure well. Transthoracic echocardiography. M-mode, complete 2D, complete spectral Doppler, and color Doppler. Patient status: Inpatient. CARDIAC ANATOMY LEFT VENTRICLE: The cavity size was normal. Wall thickness was normal. Systolic function was normal. The estimated ejection fraction was in the range of 60% to 65%. Wall motion was normal; there were no regional wall motion abnormalities. AORTIC VALVE: Trileaflet; normal thickness leaflets. Doppler: Transvalvular velocity was within the normal range. There was no stenosis. No regurgitation. AORTA: Aortic root: The aortic root was normal in size. MITRAL VALVE: Structurally normal valve. Doppler: Transvalvular velocity was within the normal range. There was no evidence for stenosis. Trace regurgitation. Peak gradient: 3mm Hg (D). LEFT ATRIUM: The atrium was normal in size. RIGHT VENTRICLE: The cavity size was normal. Wall thickness was normal. PULMONIC VALVE: Doppler: Transvalvular velocity was within the normal range. There was no evidence for stenosis. No regurgitation. TRICUSPID VALVE: Structurally normal valve. Doppler: Transvalvular velocity was within the normal range. Trace regurgitation. PULMONARY ARTERY: The main pulmonary artery was normal-sized. Systolic pressure was within the normal range. RIGHT ATRIUM: The atrium was normal in size. PERICARDIUM: There was no pericardial effusion. SYSTEMIC VEINS: Inferior vena cava: The vessel was normal in size. BASIC MEASUREMENTS ADULT Normal Left ventricle LV internal dimension, ED, chordal level, *41.2 mm 43-52 PLAX LV internal dimension, ES, chordal level, 29.9 mm 23-38 PLAX Fractional shortening, chordal level, PLAX *27 % >29 LV posterior wall thickness, ED 10.6 mm IVS/LVPW ratio, ED 1.11 <1.3 Volume, ED, MOD, 1-plane 76 ml Volume, ES, MOD, 1-plane 31 ml Ejection fraction, MOD, 1-plane 59 % Stroke volume, MOD, 1-plane 45 ml Ventricular septum Septal thickness, ED 11.8 mm Aortic valve Leaflet separation 21 mm 15-26 Right ventricle RV internal dimension, ED, PLAX 29.6 mm 19-38 BASIC MEASUREMENTS ADULT Normal Aortic valve Leaflet separation 21 mm 15-26 Aorta Root diameter, ED 31 mm 20-37 Left atrium Anterior-posterior dimension, ES 37 mm 19-40 LA/aortic root ratio 1.19 DOPPLER MEASUREMENTS ADULT Normal Main pulmonary artery Pressure, S *41 mm Hg =30 Mitral valve Peak E-wave velocity 81.4 cm/s Peak A-wave velocity 92.3 cm/s Peak gradient, D 3 mm Hg Peak E/A ratio 0.9 Tricuspid valve Regurgitant peak velocity 277 cm/s Peak RV-RA gradient, S 31 mm Hg Maximal regurgitant velocity 277 cm/s Systemic veins Estimated CVP 10 mm Hg Right ventricle RV pressure, S *41 mm Hg <30 LEGEND: Mean values are shown as u=mean value. Asterisk (*) sweet values outside specified normal range. Prepared and signed by Linwood Masterson [id number]
[2016-10-06] MEDS ORDERED: GADODIAMIDE PF 287 MG/ML 20 ML VIAL (for RAD MRI) IV ONE (14:50)
--- NOTE | 2016-10-06 14:54 | RADRPT ---
EXAM DATE/TIME: 10/06/2016 14:10 [facility] COMPARISON: MRI BRAIN W & W/O CONTRAST, October 05, 2016, 17:43. INDICATIONS : Stroke. MEDICAL HISTORY : Hypertension. SURGICAL HISTORY : Fusion, lumbar. Hysterectomy. ENCOUNTER: Subsequent ACUITY: 3 day PAIN SCORE: 0/10 LOCATION: head. Please note a normal MRA of the brain does not entirely exclude the possibility of a small aneurysm, nor the possibility of distal intracranial vessel disease. TECHNIQUE: 3D time of flight MRA was performed. Source images, multiplanar STS MIP, and 3D volume MIP reconstru ctions were reviewed. FINDINGS: There is excellent visualization of the major intracranial arteries out to the second-order branch ve ssels. There is no evidence for aneurysm, vessel truncation or stenosis, and no evidence for vascula r malformation. CONCLUSION: Normal examination. Kade Fletcher MD on October 06, 2016 at 14:51 Board Certified Radiologist. This report was verified electronically.
--- NOTE | 2016-10-06 16:02 | RADRPT ---
EXAM DATE/TIME: 10/06/2016 14:10 [facility] COMPARISON: US CAROTID ARTERIES, October 05, 2016, 20:50. INDICATIONS : Stroke. CONTRAST: 20 cc Omniscan (gadodiamide) IV MEDICAL HISTORY : Hypertension. SURGICAL HISTORY : Hysterectomy. Fusion, lumbar. ENCOUNTER: Subsequent ACUITY: 3 day PAIN SCORE: 0/10 LOCATION: neck. Percent stenosis is calculated using the diameter of the stenotic region over the diameter of the nor mal distal internal carotid artery. TECHNIQUE: Bolus infused MRA of the extracranial circulation was performed using a neurovascular coil. Post pro cessing was performed including rotating subvolume maximum intensity projections of each carotid jonathan ry, rotating full volume maximum intensity projections of both carotid arteries, sagittal and coronal sliding thin slab reformations of each carotid artery, and left oblique sliding thin slab reformatio n through the aortic arch to include the origin of the arch branch vessels. FINDINGS: AORTIC ARCH: There is a three vessel origin of the great vessels from the aorta. No evidence of ostial narrowing. RIGHT CAROTID: The common carotid artery is intact. The carotid bulb has a normal configuration without ulceration or narrowing. The internal carotid artery lumen is smooth without stenosis. The external carotid ar alaina is intact. LEFT CAROTID: The common carotid artery is intact. The carotid bulb has a normal configuration without ulceration or narrowing. The internal carotid artery lumen is smooth without stenosis. The external carotid ar alaina is intact. VERTEBRALS: The vertebral arteries have a symmetric diameter. No stenotic lesions are seen. CONCLUSION: Normal examination. Kade Fletcher MD on October 06, 2016 at 16:00 Board Certified Radiologist. This report was verified electronically.
[2016-10-06 17:09] LABS: HDL CHOLESTEROL 38.6 MG/DL (40.0-60.0); LDL CHOLESTEROL 112 MG/DL (0-99)
[2016-10-07 00:23] VITALS: BP 136/74; PULSE 88; RESP 20; TEMP 97.9; O2SAT 97
[2016-10-07] MEDS: SODIUM CHLOR 0.9% 1000 ML INJ 1,000 ML IV SCH ×2 (00:30→10:30)
[2016-10-07 01:12] VITALS: PULSE 71
[2016-10-07 04:01] VITALS: BP 109/65; PULSE 69; RESP 18; TEMP 97.6; O2SAT 96
[2016-10-07] MEDS: PANTOPRAZOLE SOD 20 MG DELAYED RELEASE TAB PO SCH (06:22)
[2016-10-07 07:15] VITALS: BP 117/67; PULSE 70; RESP 16; TEMP 97.6; O2SAT 96
[2016-10-07] MEDS ORDERED: ATORVASTATIN 80 MG TAB PO SCH (09:15)
[2016-10-07] MEDS: ACETAMINOPHEN/HYDROcodone 325 MG/10 MG TAB PO PRN (10:01)
[2016-10-07] MEDS ORDERED: ATOR40TA16 PO (10:56)
[2016-10-07] MEDS ORDERED: HYDR-3535 PO (10:56)
--- NOTE | 2016-10-07 10:56 | HHI.DCPOC ---
Discharge Care Plan Diagnosis: (1) KRISHNA (internuclear ophthalmoplegia) (2) Lumbar degenerative disc disease (3) Diplopia (4) Back pain Goals to Promote Your Health * To prevent worsening of your condition and complications * To maintain your health at the optimal level Directions to Meet Your Goals Take your medications as prescribed Follow your dietary instruction Follow activity as directed Keep your appointments as scheduled Take your immunizations and boosters as scheduled If your symptoms worsen call your PCP, if no PCP go to Urgent Care Center or Emergency Room Smoking is Dangerous to Your Health. Avoid second hand smoke Call the 24-hour hour crisis hotline for domestic abuse at Lion Peralta DO Oct 07, 2016 10:56
[2016-10-07] MEDS ORDERED: ASPI81TA11 PO (10:58)
--- NOTE | 2016-10-07 11:04 | HHI.PR ---
Subjective Remarks The patient was feeling well this morning. She was alternating eye patch from right eye. She believes her vision is getting better. She has been ambulating. She says she has a walker and cane at home. She had questions about being put on the statin. She had no other acute complaints. Objective Vitals Vital Signs Date Time Temp Pulse Resp B/P Pulse Ox O2 Delivery O2 Flow Rate FiO2 10/07/16 07:15 97.6 70 16 117/67 96 10/07/16 04:01 97.6 69 18 109/65 96 10/07/16 01:12 71 10/07/16 00:23 97.9 88 20 136/74 97 10/06/16 19:43 98.7 83 20 123/64 96 10/06/16 15:18 97.9 84 16 117/59 96 10/06/16 15:00 85 10/06/16 11:41 97.5 84 16 116/69 95 Imaging Last Impressions Neck Magnetic Resonance Angiography 10/06/16 0000 Signed Impressions: Service Date/Time: Thursday, October 06, 2016 14:10 - CONCLUSION: Normal examination. Kade Fletcher MD Head Magnetic Resonance Angiography 10/06/16 0000 Signed Impressions: Service Date/Time: Thursday, October 06, 2016 14:10 - CONCLUSION: Normal examination. Kade Fletcher MD Brain MRI 10/05/16 1536 Signed Impressions: Service Date/Time: Wednesday, October 05, 2016 17:43 - CONCLUSION: 1. Negative MRI of the brain. I do not see an etiology for the patient's dizziness and double vision. 2. There is mild asymmetry of the ventricles with the right larger than the left thought to be on a congenital basis. Lenin Saldivar MD FACR Carotid Artery Ultrasound 10/05/16 0000 Signed Impressions: Service Date/Time: Wednesday, October 05, 2016 20:50 - CONCLUSION: Negative examination for a hemodynamically significant carotid stenosis. Lenin Saldivar MD Objective Remarks GENERAL: This is a well-nourished, well-developed patient, in no apparent distress. SKIN: No rashes, ecchymoses or lesions. Cool and dry. HEAD: Atraumatic. Normocephalic. No temporal or scalp tenderness. EYES: Unable to adduct eyes bilaterally. No scleral icterus. No injection or drainage. ENT: Nose without bleeding, purulent drainage or septal hematoma. Throat without erythema, tonsillar hypertrophy or exudate. Uvula midline. Airway patent. NECK: Trachea midline. No JVD or lymphadenopathy. Supple, nontender, no meningeal signs. CARDIOVASCULAR: Regular rate and rhythm without murmurs, gallops, or rubs. RESPIRATORY: Clear to auscultation. Breath sounds equal bilaterally. No wheezes , rales, or rhonchi. GASTROINTESTINAL: Abdomen soft, non-tender, nondistended. No guarding. MUSCULOSKELETAL: Extremities without clubbing, cyanosis, or edema. No joint tenderness, effusion, or edema noted. NEUROLOGICAL: Awake and alert. Motor and sensory grossly within normal limits. Five out of 5 muscle strength in all muscle groups. Normal speech. PSYCH: Mood and affect appropriate. Medications and IVs Current Medications Medications (Trade) Dose Ordered Sig/Abiola Route Start Time Stop Time Status Last Admin (NS 1000 ml Inj) 1,000 ml @ 100 mls/hr Q10H IV 10/05/16 18:30 10/06/16 15:14 (Zofran Inj) 4 mg Q6HR PRN IV PUSH 10/06/16 00:00 10/06/16 23:12 (Reglan Inj) 5 mg Q8H PRN IV PUSH 10/05/16 20:15 ([place] 10-325 Mg) 1 tab Q6H PRN PO 10/05/16 20:15 10/07/16 10:01 (Ativan) 1 mg BID PRN PO 10/05/16 20:15 10/06/16 09:40 (Zanaflex) 4 mg TID PRN PO 10/05/16 20:15 10/07/16 02:34 (Protonix) 20 mg DAILY@06 PO 10/06/16 06:00 10/07/16 06:22 (Lipitor) 80 mg DAILY PO 10/07/16 09:15 10/07/16 10:01 A/P Problem List: (1) Diplopia ICD Code: H53.2 Status: Acute (2) KRISHNA (internuclear ophthalmoplegia) ICD Code: H51.20 Status: Acute Assessment and Plan 51-year-old female with PMH of HTN, chronic neck and back pain GERD and fatty liver. Patient states that she was watching TV last night (4/9/17) around 1800 had an episode of numbness in the mouth and lips which lasted about 10 seconds and resolved before the patient began to feel tension of the neck. She states that the facial paresthesias have resolved, neck tension continues on presentation. Just after this episode she began to experience vision problems. Initially patient presented to the ED for evaluation of diplopia, dizziness, nausea Possible internuclear ophthalmoplegia TIA vs CVA vs MS. Initially CT head done HHPO reviewed and reveals: no acute intracranial abnormality is identified. She was evaluated by ophthalmology as an outpatient. Neurology consult appreciated. MRI with and without contrast reveals report- negative MRI no etiology for dizziness and diplopia, mild asymmetry of ventricles possibly congenital basis. US bilateral carotid arteries negative. Head and neck MRAs were normal. Echo with EF of 60-65%. LDL elevated at 112. - continuous telemetry. - Status post permissive HTN. - PT/OT. - hemoglobin A1c pending. - Start atorvastatin and aspirin. N/V Seems to be resolved. - Zofran Q6H as needed. - Reglan 5 mg IV as needed. - Advance to regular diet. HTN Blood pressure well controlled at this time. - Resume medications at discharge. DVT prophylaxis SCDs Discharge Planning Discharge home with neurology and ophthalmology follow-up. Lion Peralta DO Oct 07, 2016 11:04
[2016-10-07 11:40] VITALS: BP 139/63; PULSE 83; RESP 16; TEMP 98.2; O2SAT 97
--- NOTE | 2016-10-07 11:45 | HHI.PR ---
Review/Management Daily Summary 10/07 feels vision little better will request myasthenia antibodies thyroid checks imaging studies negative ok to d/c on asa, consider statin office f/u in 2 weeks Subjective Subjective Comments No acute events reported No headache No chest pain No dyspnea Active Medications Current Medications Medications (Trade) Dose Ordered Sig/Abiola Route Start Time Stop Time Status Last Admin (NS 1000 ml Inj) 1,000 ml @ 100 mls/hr Q10H IV 10/05/16 18:30 10/06/16 15:14 (Zofran Inj) 4 mg Q6HR PRN IV PUSH 10/06/16 00:00 10/06/16 23:12 (Reglan Inj) 5 mg Q8H PRN IV PUSH 10/05/16 20:15 ([place] 10-325 Mg) 1 tab Q6H PRN PO 10/05/16 20:15 10/07/16 10:01 (Ativan) 1 mg BID PRN PO 10/05/16 20:15 10/06/16 09:40 (Zanaflex) 4 mg TID PRN PO 10/05/16 20:15 10/07/16 02:34 (Protonix) 20 mg DAILY@06 PO 10/06/16 06:00 10/07/16 06:22 (Lipitor) 80 mg DAILY PO 10/07/16 09:15 10/07/16 10:01 Allergies Allergies Coded Allergies Oxycontin (Verified Allergy, Severe, SOB/CAN'T BREATH, 10/05/16) Morphine (Verified Adverse Reaction, Severe, N/V/ITCHING/FEELS DEATHLY ILL, 04/13) Penicillin (Verified Adverse Reaction, Severe, N/V/ITCHING, 10/05/16) Aspirin (Verified Adverse Reaction, Intermediate, N/V/RASH, 10/05/16) Sulfa (Verified Adverse Reaction, Intermediate, N/V, 10/05/16) Exam I&O / VS Vital Signs Date Time Temp Pulse Resp B/P Pulse Ox O2 Delivery O2 Flow Rate FiO2 10/07/16 11:40 98.2 83 16 139/63 97 10/07/16 11:03 18 10/07/16 07:15 97.6 70 16 117/67 96 10/07/16 04:01 97.6 69 18 109/65 96 10/07/16 01:12 71 10/07/16 00:23 97.9 88 20 136/74 97 10/06/16 19:43 98.7 83 20 123/64 96 10/06/16 15:18 97.9 84 16 117/59 96 10/06/16 15:00 85 Objective Radiology Results Last 48 hours Impressions Neck Magnetic Resonance Angiography 10/06/16 0000 Signed Impressions: Service Date/Time: Thursday, October 06, 2016 14:10 - CONCLUSION: Normal examination. Kade Fletcher MD Head Magnetic Resonance Angiography 10/06/16 0000 Signed Impressions: Service Date/Time: Thursday, October 06, 2016 14:10 - CONCLUSION: Normal examination. Kade Fletcher MD Brain MRI 10/05/16 1536 Signed Impressions: Service Date/Time: Wednesday, October 05, 2016 17:43 - CONCLUSION: 1. Negative MRI of the brain. I do not see an etiology for the patient's dizziness and double vision. 2. There is mild asymmetry of the ventricles with the right larger than the left thought to be on a congenital basis. Lenin Saldivar MD FACR Micro and Labs Laboratory Tests Test 10/06/16 16:01 Triglycerides Level 158 Cholesterol Level 182 LDL Cholesterol 112 HDL Cholesterol 38.6 Cholesterol/HDL Ratio 4.71 Cristofer Da Silva MD Oct 07, 2016 11:45
[2016-10-07 16:01] LABS: HEMOGLOBIN A1a 1.4 %; HEMOGLOBIN Ao 84.2 %; HEMOGLOBIN F 1.9 %; HEMOGLOBIN P3 3.4 %
== END 2016-10-07 14:35 | disposition home or self-care (01) | DRG 93 ==
LOC: NEPE 13:24 → NEDA 18:28 → NEPFCDU 20:53 → OBSVTOIN 10-06 15:14
PROVIDERS: ADMIT Hospitalist; ATTEND Hospitalist
DX: H51.23 Internuclear ophthalmoplegia, bilateral (principal); K76.0 Fatty (change of) liver, not elsewhere classified; I10 Essential (primary) hypertension; K21.9 Gastro-esophageal reflux disease without esophagitis; M79.7 Fibromyalgia; F41.9 Anxiety disorder, unspecified; R11.2 Nausea with vomiting, unspecified; G89.29 Other chronic pain; M54.5 Low back pain; M54.2 Cervicalgia; Z98.1 Arthrodesis status
CPT/HCPCS: 70544; 70548; 70553; 80061; 83036; 93306; 93880; 96374; 96375; A9579; G0378; G8987-GP; G8988-GP; J2060; J2405; J7030